=== PATIENT | female | born 1940 | race Caucasian/White ===

== ENCOUNTER 2017-12-28 11:29 | Emergency (ER) | payer MEDICARE, OTHER ==
[2017-12-28] MEDS ORDERED: Enalaprilat 1.25 MG/ML SDV IVPUSH ONE (12:29)
--- NOTE | 2017-12-28 12:34 | EDM.PDOC ---
ED HPI GENERAL MEDICAL PROBLEM - General Chief Complaint: Cardiovascular Problem Stated Complaint: HIGH BP Time Seen by Provider: 12/28/17 12:29 Source of Information: Reports: Patient History Limitations: Reports: No Limitations - History of Present Illness INITIAL COMMENTS - FREE TEXT/NARRATIVE: 77-year-old female presents to the ED for evaluation of blood pressure that has become markedly elevated compared to her norm over the last 24 hours. She takes amlodipine 5 mg daily and hydrochlorothiazide/triamterene daily for blood pressure for many years. This usually controls her blood pressure quite well. She is in no urgent the code at this time visiting her son and she's been eating a little bit more and no doubt likely exposed to increased sodium intake. CC has noted that her legs are swelling a bit more than normal. Denies headache or nausea vomiting. No visual acuity changes. No chest pain but it may be a dull pressure discomfort central chest. No change in balance or neurological function. Onset: Gradual Onset Date: 12/27/17 (Or start her blood pressure to be elevated yesterday when checking. It's in the 160s over the 111-112 diastolically.) Duration: Hour(s): Location: Reports: Generalized (Elevated blood pressure. Asymptomatic otherwise. ) Severity: Moderate Improves with: Reports: None Worsens with: Reports: None Context: Denies: Activity, Exercise, Lifting, Sick Contact, Trauma, Other Associated Symptoms: Reports: Chest Pain. 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.) Chest Pain Score (Numeric/FACES): 2 - Related Data Allergies Allergy/AdvReac Type Severity Reaction Status Date / Time No Known Allergies Allergy Verified 12/28/17 12:09 Home Meds: Home Meds Rosuvastatin [Crestor] 10 mg PO DAILY 12/28/17 [History] Triamterene/Hydrochlorothiazid [Triamterene-HCTZ 37.5-25 MG] 1 each PO DAILY 04/07 [History] amLODIPine Besylate [Amlodipine Besylate] 5 mg PO DAILY 12/28/17 [History] Past Medical History Cardiovascular History: Reports: High Cholesterol, Hypertension Musculoskeletal History: Reports: Osteoarthritis (Knees hips) Social & Family History - Living Situation & Occupation Occupation: Retired ED ROS GENERAL - Review of Systems Review Of Systems: See Below Constitutional: Denies: Fever, Chills, Malaise, Weakness, Fatigue, Decreased Appetite, Weight Loss HEENT: Reports: No Symptoms Respiratory: Reports: No Symptoms Cardiovascular: Reports: Chest Pain, Blood Pressure Problem, Edema (Has noticed some dependent edema in her lower extremities.) Endocrine: Reports: No Symptoms GI/Abdominal: Reports: No Symptoms : Reports: No Symptoms Musculoskeletal: Reports: Joint Pain Skin: Reports: No Symptoms Neurological: Reports: No Symptoms Psychiatric: Reports: No Symptoms Hematologic/Lymphatic: Reports: No Symptoms Immunologic: Reports: No Symptoms ED EXAM, GENERAL - Physical Exam Exam: See Below Exam Limited By: No Limitations General Appearance: Alert, WD/WN, No Apparent Distress, Anxious (Mildly anxious. ) Eye Exam: Bilateral Eye: Normal Fundi, Normal Inspection Throat/Mouth: Normal Inspection, Normal Lips, Normal Teeth, Normal Oropharynx Head: Atraumatic, Normocephalic Neck: Normal Inspection, Supple, Non-Tender, Full Range of Motion. No: Lymphadenopathy (L), Lymphadenopathy (R) Respiratory/Chest: No Respiratory Distress, Lungs Clear, Normal Breath Sounds, No Accessory Muscle Use Cardiovascular: Normal Peripheral Pulses, Regular Rate, Rhythm, No Gallop, No Murmur, No Rub. No: No Edema Peripheral Pulses: 2+: Posterior Tibial (L), Posterior Tibial (R), Dorsalis Pedis (L), Dorsalis Pedis (R) GI/Abdominal: Normal Bowel Sounds, Soft, Non-Tender, No Organomegaly, No Abnormal Bruit, No Mass, Pelvis Stable, Other (No surgical scars.) Extremities: Normal Inspection, Normal Range of Motion, Non-Tender, No Pedal Edema, Normal Capillary Refill Neurological: Alert, Oriented, CN II-XII Intact, Normal Cognition, Normal Gait, No Motor/Sensory Deficits Psychiatric: Normal Affect, Normal Mood Skin Exam: Warm, Dry, Intact, Normal Color, No Rash EKG INTERPRETATION EKG Date: 12/28/17 Time: 12:15 Rhythm: NSR Rate (Beats/Min): 61 Laporte: LAD-Left Laporte Deviation (Mild left axis deviation -2) P-Wave: Present QRS: Other (Early R-wave transition. Consider septal hypertrophy pattern.) ST-T: Other (T-wave flattening in V4 to V6 so aVF) QT: Prolonged (QT intervals mildly prolonged.) EKG Interpretation Comments: Borderline ECG. Course - Vital Signs Last Recorded V/S: Last Vital Signs Temp 37.4 C 12/28/17 11:59 Pulse 69 12/28/17 12:59 Resp 16 12/28/17 12:59 BP 159/69 H 12/28/17 12:59 Pulse Ox 99 12/28/17 12:59 - Orders/Labs/Meds Labs: Laboratory Tests 12/28/17 12/28/17 12/28/17 Range/Units 12:25 12:25 12:25 WBC 7.81 (3.98-10.04) K/mm3 RBC 5.07 (3.98-5.22) M/mm3 Hgb 14.8 (11.2-15.7) gm/L Hct 43.4 (34.1-44.9) % MCV 85.6 (79.4-94.8) fl MCH 29.2 (25.6-32.2) pg MCHC 34.1 (32.2-35.5) g/dl RDW Std Deviation 45.8 (36.4-46.3) fL Plt Count 244 (182-369) K/mm3 MPV 11.4 (9.4-12.3) fl Neutrophils % (Manual) 73 H (40-60) % Band Neutrophils % 0 (0-10) % Lymphocytes % (Manual) 21 (20-40) % Atypical Lymphs % 0 % Monocytes % (Manual) 3 (2-10) % Eosinophils % (Manual) 3 (0.7-5.8) % Basophils % (Manual) 0 L (0.1-1.2) Platelet Estimate Adequate RBC Morph Comment Normal Sodium 141 (136-145) mEq/L Potassium 3.1 L (3.5-5.1) mEq/L Chloride 102 (98-107) mEq/L Carbon Dioxide 28 (21-32) mEq/L Anion Gap 14.1 (5-15) BUN 9 (7-18) mg/dL Creatinine 1.0 (0.55-1.02) mg/dL Est Cr Clr Drug Dosing 38.44 mL/min Estimated GFR (MDRD) 54 (>60) mL/min BUN/Creatinine Ratio 9.0 L (14-18) Glucose 115 (83-115) mg/dL Calcium 9.7 (8.5-10.1) mg/dL Magnesium 1.8 (1.8-2.4) mg/dl Total Bilirubin 0.4 (0.2-1.0) mg/dL AST 29 (15-37) U/L ALT 21 (14-59) U/L Alkaline Phosphatase 95 (46-116) U/L Troponin I < 0.017 (0.00-0.056) ng/mL NT-Pro-B Natriuret Pep 248 (0-450) pg/mL Total Protein 7.3 (6.4-8.2) g/dl Albumin 3.9 (3.4-5.0) g/dl Globulin 3.4 gm/dL Albumin/Globulin Ratio 1.2 (1-2) Meds: Medications Discontinued Medications Generic Name Dose Route Start Last Admin Trade Name Freq PRN Reason Stop Dose Admin Enalaprilat 1.25 mg 12/28/17 12:29 12/28/17 12:37 Vasotec Iv IVPUSH 12/28/17 12:30 1.25 mg ONETIME ONE Administration - Radiology Interpretation Free Text/Narrative:: 77-year-old female presents to the ED with elevated blood pressure over the last 24 hours or more. She checks it daily and blood pressure usually is well controlled in the 07/21/39 systolic range and 80-85 diastolically. Yesterday morning was 160 02/19/11. This morning it's 170 112. No change in her med medications have been made recently. She is here [facility] eating a lot more and I suspect is taken on a lot more sodium than normal. His noted some increased edema in her lower extremities as well. Initial blood pressure here was 192/91. She is otherwise asymptomatic. Plan routine labs. I will give her Vasotec 1.25 mg IV at this time to make sure blood pressure comes down. Her ECG shows sinus rhythm at 61/m with some suggestion of likely septal hypertrophy with early R-wave transition. There is a minimal left axis deviation of -2. Some nonspecific T-wave flattening in V4 to V6 and aVF. QT is minimally prolonged as well. Kaitlin acute ischemia. - Re-Assessments/Exams Free Text/Narrative Re-Assessment/Exam: 12/28/17 12:54 BP is currently 159/69. Therefore going to let her go so she can catch a flight as she has to fly out of [place] back to [facility]. I can call her with the lab results likely she'll still be in the airport in [place]. 12/28/17 14:22 Labs are back. White count is normal at 7.81. Differential 73% neutrophils no bands. Hemoglobin is 14.8 with hematocrit of 43.4. Platelet count is normal at 244,000. Sodium is 141 potassium slightly low at 3.1. Chloride 102 with a bicarbonate 28. And a gap is 14.1. BUN is 9. Estimated GFR is 54. Glucose is 1:15 calcium 9.7. Magnesium is 1.8. Liver function normal cardiac markers are normal. BNP is 248 which is normal for her age. Spoke to the patient by phone. She was advised for slightly low potassium at 3.1. No other abnormalities were appreciated.. Departure - Departure Time of Disposition: 12:55 Disposition: Home, Self-Care 01 Condition: Fair Clinical Impression: Elevated blood pressure reading Referrals: PCP,Not In Area [Primary Care Provider] - Forms: ED Department Discharge Additional Instructions: Evaluation the emergency room today in regards to elevated blood pressure readings all over the last two days. This is in comparison to your usual blood pressure recordings. I suspect the cause may be dietary. Retention of sodium eating out different diet than at home will make her retain fluid and regular blood pressure elevate over at. Of 3-4 days. Lab tests were ordered in the ED and I will have the results available in about an hour. Since her blood pressure came down nicely in the ED to 161/59 I feel it is safe to let you travel at this time. I also did give you a medication Vasotec 1.25 mg IV which will bring her blood pressure down further over the next several hours. I suspect once she gets back home and on a regular doctor blood pressure will return to normal. If not of course follow-up with your personal physician. I will try and catch you by phone with your lab results before your flight leaves [place].
== END 2017-12-28 13:00 | disposition home or self-care (01) ==
LOC: JD.ED 11:29
DX: I10 Essential (primary) hypertension (principal); E78.00 Pure hypercholesterolemia, unspecified; Z79.899 Other long term (current) drug therapy
CPT/HCPCS: 36415; 80053; 83735; 83880; 84484; 85007; 85027; 93010; 96374; 99283-25; 99284-25